=== PATIENT | female | born 1980 | race African-American/Black ===

== ENCOUNTER 2018-12-13 11:18 | Day surgery (SDC) | payer OTHER ==
--- NOTE | 2018-12-13 11:18 | HP ---
Admitting History and Physical - Admission Chief Complaint: Anemia, 35 weeks History of Present Illness: 38 y/o P2 female (h/o c section X 2 ) with SIUP at 35 weeks gestation here for Iron infusion for anemia. Last Hgb in office 7.8. Pt asymptomatic. complicated by gestational HTN, being monitored closely for development of preEclampsia. Plan for repeat c section this . History Source: Patient, Medical Record Limitations to Obtaining History: No Limitations - Past Medical History Cardiovascular: Yes: HTN (gestational). No: [place] Gastrointestinal: No: GI Bleed Hepatobiliary: No: Hepatitis B, Hepatitis C Renal/: No: UTI Reproductive: No: Ectopic , PID ...: Yes Heme/Onc: Yes: Anemia - Past Surgical History Past Surgical History: Yes: - Smoking History Smoking history: Never smoked Have you smoked in the past 12 months: No - Alcohol/Substance Use Hx Alcohol Use: No - Social History Usual Living Arrangement: Yes: With Spouse ADL: Independent History of Recent Travel: No Home Medications - Allergies Allergies/Adverse Reactions: Allergies Allergy/AdvReac Type Severity Reaction Status Date / Time Fish Containing Products Allergy Verified 06/16/12 08:17 - Home Medications Home Medications: Ambulatory Orders Acetaminophen [Tylenol .Regular Strength -] 650 mg PO Q4H PRN #1 tablet Ferrous Sulfate [Feosol] 325 mg PO BID #1 ud 06/19/12 Vitamins (Sjr) - 1 tab PO DAILY #1 06/19/12 Review of Systems - Review of Systems Constitutional: reports: No Symptoms Eyes: reports: No Symptoms HENT: reports: No Symptoms Neck: reports: No Symptoms Cardiovascular: reports: No Symptoms Respiratory: reports: No Symptoms Gastrointestinal: reports: No Symptoms Genitourinary: reports: No Symptoms Breasts: reports: No Symptoms Reported Musculoskeletal: reports: No Symptoms Integumentary: reports: No Symptoms Neurological: reports: No Symptoms Endocrine: reports: No Symptoms Hematology/Lymphatic: reports: No Symptoms Psychiatric: reports: No Symptoms Physical Examination Constitutional: Yes: Well Nourished, No Distress, Calm Neck: Yes: Trachea Midline Respiratory: Yes: Regular Gastrointestinal: Yes: Soft, Other (gravid) Neurological: Yes: Alert, Oriented Psychiatric: Yes: Alert, Oriented Problem List - Problems (1) Anemia Code(s): D64.9 - ANEMIA, UNSPECIFIED (2) 35 weeks gestation of Code(s): Z3A.35 - 35 WEEKS GESTATION OF (3) Gestational hypertension Code(s): O13.9 - GESTATIONAL HTN W/O SIGNIFICANT PROTEINURIA, UNSP TRIMESTER Assessment/Plan for IV Iron infusion per protocol
[2018-12-13] MEDS ORDERED: FERRIC CARBOXYMALTOSE 750 MG in SODIUM CHLORIDE 250 ML IVPB ONE (12:00)
[2018-12-13 14:26] VITALS: BP 118/61; PULSE 96; TEMP 98.2
== END 2018-12-13 13:37 | disposition home or self-care (01) ==
LOC: JINFUSION 11:18
PROVIDERS: ATTEND Obstetrics & Gynecology
PROC: 3E033GC Introduction of Other Therapeutic Substance into Peripheral Vein, Percutaneous Approach (ICD-10-PCS; principal; 2018-12-13)
DX: O99.013 Anemia complicating pregnancy, third trimester (principal); O13.3 Gestational [pregnancy-induced] hypertension without significant proteinuria, third trimester; Z3A.35 35 weeks gestation of pregnancy
CPT/HCPCS: 96365; J1439

== ENCOUNTER → 2018-12-21 | Day surgery (SDC) | payer OTHER ==
[~2018-12-21] MED LIST: FERRIC CARBOXYMALTOSE 750 MG in SODIUM CHLORIDE 250 ML IVPB ONE
[2018-12-21 12:28] VITALS: TEMP 97.9
--- NOTE | 2018-12-21 14:15 | HP ---
Admitting History and Physical - Admission History of Present Illness: 38 y/o P2 female (h/o c section X 2 ) with SIUP at 36 weeks gestation here for Iron infusion for anemia. Last Hgb in office 7.8. Pt asymptomatic. complicated by gestational HTN, being monitored closely for development of preEclampsia. Plan for repeat c section this . - Past Medical History Cardiovascular: Yes: HTN (gestational). No: [place] ...: Yes Heme/Onc: Yes: Anemia - Past Surgical History Past Surgical History: Yes: - Smoking History Smoking history: Never smoked Have you smoked in the past 12 months: No - Alcohol/Substance Use Hx Alcohol Use: No - Social History ADL: Independent History of Recent Travel: No Home Medications - Allergies Allergies/Adverse Reactions: Allergies Allergy/AdvReac Type Severity Reaction Status Date / Time Fish Containing Products Allergy Verified 12/13/18 14:22 shellfish derived Allergy Swelling Verified 12/14/18 16:59 - Home Medications Home Medications: Ambulatory Orders Ferrous Sulfate [Feosol] 325 mg PO BID #1 ud 06/19/12 Vitamins (Sjr) - 1 tab PO DAILY #1 06/19/12 Physical Examination Vital Signs: Vital Signs Temperature 97.9 F 12/21/18 13:24 Pulse Rate 96 H 12/21/18 13:24 Respiratory Rate 18 12/21/18 13:24 Blood Pressure 120/65 12/21/18 13:24 O2 Sat by Pulse Oximetry (%) Constitutional: Yes: Well Nourished, No Distress, Calm Gastrointestinal: Yes: Soft, Other (gravid abdomen) Psychiatric: Yes: Alert, Oriented Problem List - Problems (1) Anemia Code(s): D64.9 - ANEMIA, UNSPECIFIED (2) 36 weeks gestation of Code(s): Z3A.36 - 36 WEEKS GESTATION OF Assessment/Plan IV injectafer infusion as ordered per protocol
[2018-12-21 15:22] VITALS: BP 146/86; PULSE 92
== END | disposition home or self-care (01) ==
LOC: JINFUSION 11:59
PROVIDERS: ATTEND Obstetrics & Gynecology
PROC: 3E033GC Introduction of Other Therapeutic Substance into Peripheral Vein, Percutaneous Approach (ICD-10-PCS; principal; 2018-12-21)
DX: O99.013 Anemia complicating pregnancy, third trimester (principal); O13.3 Gestational [pregnancy-induced] hypertension without significant proteinuria, third trimester; Z3A.36 36 weeks gestation of pregnancy
CPT/HCPCS: 96365; J1439

== ENCOUNTER 2019-01-03 09:54 | Inpatient (IN) | payer OTHER ==
--- NOTE | 2019-01-03 10:39 | HP ---
Past Medical History - Admission Chief Complaint: here for c section History of Present Illness: 38 y/o with SIUP at 38.2 weeks gestation. h/o c section X 2 and diagnosed with gestational HTN this , mild, no meds. Had post pre Eclampsia with prior , has been following with MFM. HELLP labs X 2 normal. Desires sterilization. Feeling well today, no complaints. Denies HOWE/RUQ pain or changes in vision. History Source: Patient, Medical Record - Past Medical History Cardiovascular: Yes: HTN (h/o post pre eclampsia, gHTN this , no meds, HELLP labs neg) Pulmonary: No: Asthma, COPD Gastrointestinal: No: GERD Hepatobiliary: No: Hepatitis B, Hepatitis C ...: 5 ...Para: 2 ...Term: 2 Heme/Onc: Yes: Anemia Infectious Disease: No: HIV, MRSA, STD's Psych: No: Anxiety, Bipolar, Depression - Past Surgical History Past Surgical History: Yes: Cholecystectomy, Hx Myomectomy: No Hx Transabdominal Cerclage: No - Smoking History Smoking history: Never smoked Have you smoked in the past 12 months: No - Alcohol/Substance Use Hx Alcohol Use: No - Social History ADL: Independent History of Recent Travel: No Home Medications - Allergies Allergies/Adverse Reactions: Allergies Allergy/AdvReac Type Severity Reaction Status Date / Time Fish Containing Products Allergy Verified 01/03/19 10:23 shellfish derived Allergy Swelling Verified 01/03/19 10:23 - Home Medications Home Medications: Ambulatory Orders Ferrous Sulfate [Feosol] 325 mg PO BID #1 ud 06/19/12 Vitamins (Sjr) - 1 tab PO DAILY #1 06/19/12 Review of Systems - Review of Systems Constitutional: reports: No Symptoms Eyes: reports: No Symptoms HENT: reports: No Symptoms Neck: reports: No Symptoms Cardiovascular: reports: No Symptoms Respiratory: reports: No Symptoms Gastrointestinal: reports: No Symptoms Genitourinary: reports: No Symptoms Breasts: reports: No Symptoms Reported Musculoskeletal: reports: No Symptoms Integumentary: reports: No Symptoms Neurological: reports: No Symptoms Endocrine: reports: No Symptoms Hematology/Lymphatic: reports: No Symptoms Psychiatric: reports: No Symptoms Physical Exam - Maternity Constitutional: Yes: Well Nourished, No Distress, Calm Eyes: Yes: Conjunctiva Clear, EOM Intact HENT: Yes: Atraumatic, Normocephalic Neck: Yes: Supple, Trachea Midline Cardiovascular: Yes: Regular Rate and Rhythm Lungs: Clear to auscultation - Abdominal Exam/OB Number of Fetuses: Single Presentation: Vertex Contractions: No Category: I Accelerations: Uniform Decelerations: None - Vaginal Exam/OB Vaginal Bleediing: No Speculum Exam: No Amniotic Membrane Status: Intact Presentation: Vertex/Position - Physical Exam Psychiatric: Yes: Alert, Oriented Hemorrhage Risk Assessment - Risk Factors Medium Risk Factors: Yes: Prior , uterine surgery,or multiple laparotomies, Obesity (BMI >40) Risk Score: 2 Risk Level: High Risk Problem List - Problems (1) Gestational [-induced] hypertension without significant proteinuria , complicating childbirth Code(s): O13.4 - GESTATNL HTN WITHOUT SIGNIFICANT PROTEIN, COMP CHILDBIRTH (2) Obesity complicating Code(s): O99.210 - OBESITY COMPLICATING , UNSPECIFIED TRIMESTER Assessment/Plan 38 y/o with SIUP at 38.2 weeks, gestational HTN for repeat c section and BTL Anemia - Hgb 10.4 preop, will have 2 units PRBC crossmatched informed consent obtained anesthesia aware NPO Gallagher
[2019-01-03 10:43] VITALS: BMI 41.5
[2019-01-03] MEDS ORDERED: CITRIC ACID/SODIUM CITRATE 30 ML UNIT-DOSE CUP PO ONE (10:53)
[2019-01-03] MEDS ORDERED: ELECTROLYTE-148 SOLN 500 ML IV ONE (10:53)
[2019-01-03] MEDS ORDERED: METHYLERGONOVINE MALEATE 0.2 MG/1 ML AMP IM PRN (10:53)
[2019-01-03] MEDS ORDERED: ELECTROLYTE-148 SOLN 1,000 ML IV SCH (11:00)
[2019-01-03] MEDS ORDERED: morphine SULFATE/PF 0.5 MG/ML (2cc Syringe - QUVA) ONE (11:16)
[2019-01-03] MEDS ORDERED: PROPOFOL 20 ML ONE (11:18)
[2019-01-03] MEDS ORDERED: OXYTOCIN 20 UNITS in 0.9% NS 20 UNIT/1,000 ML INFUS.BAG IV ONE ×3 (11:27→16:54)
[2019-01-03] MEDS ORDERED: OXYTOCIN 10 UNITS/ML VIAL ONE (11:48)
[2019-01-03] MEDS ORDERED: ePHEDrine SULFATE 50 MG/1 ML AMPULE ONE (12:28)
--- NOTE | 2019-01-03 12:52 | OP ---
Operative Note - Note: Operative Date: 01/03/19 Pre-Operative Diagnosis: prior c section X 2, desires sterilization, gestational HTN Operation: repeat LTCS, bilateral salpingectomy Post-Operative Diagnosis: Same as Pre-op Surgeon: Reyna Delcid Aircraft Engineer: Anup Mckeon Anesthesia: Spinal Specimens Removed: placenta Estimated Blood Loss (mls): 700 Operative Report Dictated: Yes
[2019-01-03] MEDS: OXYTOCIN 20 UNITS in 0.9% NS 20 UNIT/1,000 ML INFUS.BAG IV SCH ×2 (13:00→16:55)
[2019-01-03] MEDS: FERROUS SO4 325 MG TABLET (FP) PO SCH (17:36)
[2019-01-03] MEDS: IBUPROFEN 800 MG/8 ML IJ IVPB PRN (18:19)
[2019-01-04] MEDS: IBUPROFEN 800 MG/8 ML IJ IVPB PRN (00:11)
[2019-01-04] MEDS: ACETAMINOPHEN 325 MG TABLET (FP) PO PRN ×3 (05:55→18:41)
[2019-01-04] MEDS: IBUPROFEN 600 MG TABLET (FP) PO PRN ×3 (05:56→18:40)
--- NOTE | 2019-01-04 07:43 | PN ---
Post Progress Note - Subjective Subjective: Pt seen/evaluated and doing well. Pain controlled, tolerating clear diet. Not yet ambulating or voiding. Good urine output. Type of Delivery: Repeat C/S Vital Signs: Vital Signs Temperature 98.8 F 01/04/19 05:00 Pulse Rate 88 01/04/19 05:00 Respiratory Rate 18 01/04/19 06:00 Blood Pressure 142/76 01/04/19 05:00 O2 Sat by Pulse Oximetry (%) 100 01/03/19 14:00 Uterus: Yes: Fundus Firm Incision: Yes: Dressing dry and intact Abdomen/GI: Yes: Abdomen soft Lochia: Yes: Rubra Lochia, amount: Moderate Extremities: Yes: Calves non-tender Perineum: Yes: Intact Problem List - Problems (1) Gestational [-induced] hypertension without significant proteinuria , complicating childbirth Code(s): O13.4 - GESTATNL HTN WITHOUT SIGNIFICANT PROTEIN, COMP CHILDBIRTH (2) Obesity complicating Code(s): O99.210 - OBESITY COMPLICATING , UNSPECIFIED TRIMESTER (3) delivery delivered Code(s): O82 - ENCOUNTER FOR DELIVERY WITHOUT INDICATION (4) Admission for sterilization Code(s): Z30.2 - ENCOUNTER FOR STERILIZATION Assessment/Plan POD#0 s/p primary c section, doing well cbc in a.m. advance diet as tolerated d/c [place] in a.m. routine care
--- NOTE | 2019-01-04 07:49 | OP ---
DATE OF OPERATION: 01/03/2019 PREOPERATIVE DIAGNOSES: Prior section x2, gestational hypertension, maternal obesity, desire for permanent sterilization. POSTOPERATIVE DIAGNOSES: Prior section x2, gestational hypertension, maternal obesity, desire for permanent sterilization. PROCEDURE: Repeat low transverse section, bilateral salpingectomy. SURGEON: Reyna Delcid DO ANESTHESIOLOGIST: __Rex Sethi SLASHER OPERATOR: LITA Chandler ANESTHESIA: Spinal. ESTIMATED BLOOD LOSS: 700 mL. COMPLICATIONS: None. SPECIMENS REMOVED: Placenta. COUNTS: Sponge, needle, and instrument count correct. DISPOSITION: Stable to PACU. BRIEF HISTORY AND DESCRIPTION OF PROCEDURE: Patient is a 38-year-old female who was seen in the office throughout her , was diagnosed with gestational hypertension. She also expressed desire for permanent sterilization and was scheduled for a repeat on January 03, 2019. Consents for the procedure were signed upon admission to the hospital. The patient was then taken back to the operating room. She was given spinal anesthesia, placed in the dorsal supine position. A Gallagher catheter was placed under sterile conditions. She was prepped and draped in the usual sterile fashion, and a hard timeout was performed. A Pfannenstiel skin incision was created in the skin with a scalpel and carried to the underlying layer of rectus fascia sharply. The fascia was incised on either side of the midline sharply and carried in a superolateral direction sharply. The fascia was tented upward and dissected off the underlying layer of rectus muscle sharply. The musculature was identified in the midline and laterally. Peritoneum was entered bluntly and dissected to allow for adequate room for delivery. A bladder blade was inserted. A low transverse incision was created on the uterus, and this incision was carried in a superolateral direction bluntly. The was then delivered from the right occiput transverse position. Bilateral shoulders and the remainder of delivered with ease. The 3-vessel cord was noted, clamped, and cut, and the infant was taken over to the warmer to be assessed by the neonatology staff. Placenta was delivered intact, it manually extracted. The uterus was exteriorized from the abdomen, inspected, and cleared of all amniotic membrane and debris with a dry lap sponge. The hysterotomy was reapproximated in double-layer closure using 1 Vicryl in a running locked fashion, second layer being 0 Biosyn in a running locked fashion. Excellent hemostasis was achieved. Attention was then turned to the fallopian tubes. The right fallopian tube was identified and traced to its fimbriated end, elevated, and dissected off its attachment to the mesosalpinx and uterus using the LigaSure device. The same was repeated on the left fallopian tube. Both fallopian tubes were sent to pathology for permanent evaluation. Excellent hemostasis was achieved at the surgical site. The posterior cul-de-sac was suctioned. The uterus was placed back into the abdomen. Bilateral gutters were inspected and cleared of all amniotic membrane, blood and debris. The peritoneum was reapproximated using 2-0 chromic in a running fashion. The musculature was reapproximated using 1 stitch of 0 Biosyn, and fascia was reapproximated using 1 Vicryl in a running fashion. The subcutaneous tissue was irrigated, and any bleeding was cauterized with Bovie device. The subcutaneous tissue was reapproximated using 1 Vicryl in a running fashion. The skin was reapproximated subcuticularly with 3-0 Vicryl, and Steri-Strips were applied. The patient tolerated the procedure well, is recovering in stable condition in the PACU after the time of this dictation. Sponge, needle and instrument counts were reported correct at the end of the case. REYNA DELCID DO /[id number] MTDD
[2019-01-04 08:40] LABS: BASO % 0.2 % (0-2.0); EOS % 0.2 % (0-4.5); HEMOGLOBIN 8.9 GM/dL (10.7-15.3); LYMPH % 7.6 % (8-40); MCH 24.9 pg (25.7-33.7); MCHC 31.6 g/dl (32.0-36.0); MEAN CELL VOLUME 78.9 fl (80-96); MEAN PLT VOLUME 8.6 fl (7.5-11.1); MONO % 7.2 % (3.8-10.2); NEUT % 84.8 % (42.8-82.8); PLATELET COUNT 154 K/MM3 (134-434); RBC 3.55 M/mm3 (3.60-5.2); RDW 35.2 % (11.6-15.6); WHITE BLOOD COUNT 7.6 K/mm3 (4.0-10.0)
[2019-01-04] MEDS: FERROUS SO4 325 MG TABLET (FP) PO SCH ×2 (08:43→17:26)
[2019-01-04] MEDS: SIMETHICONE 80 MG TAB.CHEW (FP) PO PRN (08:44)
[2019-01-04] MEDS: oxyCODONE HCL 5 MG TABLET PO PRN ×3 (08:44→18:39)
--- NOTE | 2019-01-04 08:52 | PN ---
Progress Note (short form) - Note Progress Note: Post op day#1.S/P C Section under spinal anesthesia with duramorph uneventful.Patient stable and c/o some pain for which she is on medication.No any anesthesia related problem.Patient DC from the anesthesia care.
[2019-01-04] MEDS: PRENATAL VITAMINS W/ FOLIC ACID TABLET (FP) PO SCH ×2 (09:52→13:19)
[2019-01-04] MEDS ORDERED: BISACODYL 10 MG SUPP.RECT RC PRN (10:53)
[2019-01-04 12:24] LABS: BASO % 0.3 % (0-2.0); EOS % 0.2 % (0-4.5); HEMATOCRIT 30.6 % (32.4-45.2); HEMOGLOBIN 9.3 GM/dL (10.7-15.3); MCH 24.3 pg (25.7-33.7); MCHC 30.4 g/dl (32.0-36.0); MEAN PLT VOLUME 9.3 fl (7.5-11.1); NEUT % 82.5 % (42.8-82.8); PLATELET COUNT 199 K/MM3 (134-434); RBC 3.82 M/mm3 (3.60-5.2); RDW 35.2 % (11.6-15.6); WHITE BLOOD COUNT 8.5 K/mm3 (4.0-10.0)
[2019-01-05] MEDS: SIMETHICONE 80 MG TAB.CHEW (FP) PO PRN ×3 (02:09→13:33)
[2019-01-05] MEDS: ACETAMINOPHEN 325 MG TABLET (FP) PO PRN (02:09)
[2019-01-05] MEDS: IBUPROFEN 600 MG TABLET (FP) PO PRN ×3 (02:10→13:34)
[2019-01-05] MEDS: oxyCODONE HCL 5 MG TABLET PO PRN ×4 (02:10→20:43)
[2019-01-05] MEDS: FERROUS SO4 325 MG TABLET (FP) PO SCH ×2 (08:08→17:10)
[2019-01-05] MEDS: PRENATAL VITAMINS W/ FOLIC ACID TABLET (FP) PO SCH (09:19)
[2019-01-05] MEDS ORDERED: DIPHTH,PERTUSS(ACELL),TET 0.5 ML DISP.SYRIN IM ONE (10:00)
[2019-01-05] MEDS ORDERED: FLU VACC QS2019-20(6MOS UP)/PF 60 MCG/0.5 ML SYRINGE IM ONE (10:00)
[2019-01-05] MEDS ORDERED: FLU VACCINE QUAD 60 MCG/0.5 ML (MDV 19-20) IM ONE (10:00)
[2019-01-06] MEDS: IBUPROFEN 600 MG TABLET (FP) PO PRN ×4 (02:59→20:18)
[2019-01-06] MEDS: oxyCODONE HCL 5 MG TABLET PO PRN ×2 (03:00→08:41)
[2019-01-06] MEDS: SIMETHICONE 80 MG TAB.CHEW (FP) PO PRN ×2 (03:00→14:37)
[2019-01-06 08:14] LABS: BASO % 0.1 % (0-2.0); EOS % 1.5 % (0-4.5); HEMATOCRIT 25.4 % (32.4-45.2); MCH 25.3 pg (25.7-33.7); MCHC 31.5 g/dl (32.0-36.0); MEAN CELL VOLUME 80.1 fl (80-96); MEAN PLT VOLUME 8.7 fl (7.5-11.1); MONO % 7.1 % (3.8-10.2); NEUT % 78.3 % (42.8-82.8); PLATELET COUNT 183 K/MM3 (134-434); RBC 3.17 M/mm3 (3.60-5.2); RDW 34.9 % (11.6-15.6); WHITE BLOOD COUNT 5.9 K/mm3 (4.0-10.0)
[2019-01-06] MEDS: FERROUS SO4 325 MG TABLET (FP) PO SCH ×2 (08:42→17:40)
[2019-01-06] MEDS: PRENATAL VITAMINS W/ FOLIC ACID TABLET (FP) PO SCH (09:28)
--- NOTE | 2019-01-06 11:46 | PN ---
Post Note - Post Date of Delivery: 01/03/19 Vital Signs: Vital Signs - 24 hr 01/05/19 01/06/19 01/06/19 22:00 10:00 11:15 Temperature 98.7 F 98.5 F Pulse Rate 95 H 92 H 90 Respiratory 17 20 20 Rate Blood Pressure 135/78 154/84 129/75 Labs: Laboratory Results - last 24 hr 01/06/19 07:23 WBC 5.9 RBC 3.17 L Hgb 8.0 L Hct 25.4 L D MCV 80.1 MCH 25.3 L MCHC 31.5 L RDW 34.9 H Plt Count 183 MPV 8.7 Absolute Neuts (auto) 4.6 Neutrophils % 78.3 Lymphocytes % 13.0 D Monocytes % 7.1 Eosinophils % 1.5 D Basophils % 0.1 Nucleated RBC % 0 - Subjective Subjective: No Complaints - Objective Afebrile: Yes Breast: Not engorged Abdomen: Soft, Other (incision intact no drainage) Uterus: Fundus firm Vagina: Scant lochia Extremities: Non-tender - Assessment/Plan (1) delivery delivered Assessment: Other (POD3) Plan: Routine Care, Other ([place] home)
[2019-01-06] MEDS: ACETAMINOPHEN 325 MG TABLET (FP) PO PRN ×2 (14:36→20:18)
[2019-01-07] MEDS: SIMETHICONE 80 MG TAB.CHEW (FP) PO PRN ×2 (01:53→08:55)
[2019-01-07] MEDS: IBUPROFEN 600 MG TABLET (FP) PO PRN ×2 (01:53→08:55)
[2019-01-07] MEDS: ACETAMINOPHEN 325 MG TABLET (FP) PO PRN ×2 (01:53→08:55)
--- NOTE | 2019-01-07 08:30 | DS ---
Physical Exam-CREDENTIALING COORDINATOR Vital Signs: Vital Signs Temperature 99.3 F 01/06/19 22:00 Pulse Rate 98 H 01/06/19 22:00 Respiratory Rate 01/06/19 22:00 Blood Pressure 138/84 01/06/19 22:00 O2 Sat by Pulse Oximetry (%) 100 01/03/19 14:00 Constitutional: Yes: Well Nourished, No Distress Gastrointestinal: Yes: WNL, Soft ....Post : Yes: Uterus firm, Uterus non-tender Breast(s): Yes: WNL Musculoskeletal: Yes: WNL Extremities: Yes: WNL Edema: No Wound/Incision: Yes: Clean/Dry, Well Approximated Neurological: Yes: WNL, Alert, Oriented Labs: CBC, BMP 01/06/19 07:23 Delivery - Delivery Type of Anesthesia: Spinal EBL (cc): 700 Delivery, Single - Stages of Labor Date of Delivery: 01/03/19 Time of Delivery: 12:10 Time Placenta Delivered: 12:11 - Condition of Managed Care Nurse/Restaurant Lead Present: Yes Name: Ruy Henson Gender: Male Weight: 7 lb 6 oz Total Hours ROM (Hrs/Mins): 2 minutes - 1 Minute Total Score: 8 5 Minutes Total Score: 9 - [place] Feeding Plan Initial Plan: Elected not to breastfeed exclusively throughout hospitalization Discharge Summary Problems reviewed: Yes Reason For Visit: REPEAT Current Active Problems Admission for sterilization (Acute) delivery delivered (Acute) Gestational [-induced] hypertension without significant proteinuria, complicating childbirth (Acute) Obesity complicating (Acute) Procedures: Principal: Repeat Section Hospital Course: Unremarkable Condition: Good - Instructions Disposition: HOME - Home Medications Comprehensive Discharge Medication List: Ambulatory Orders Ferrous Sulfate [Feosol] 325 mg PO BID #1 ud 06/19/12 Vitamins (Sjr) - 1 tab PO DAILY #1 06/19/12 Ibuprofen [Motrin -] 600 mg PO QID #28 tablet 01/07/19
[2019-01-07] MEDS: FERROUS SO4 325 MG TABLET (FP) PO SCH (08:55)
[2019-01-07] MEDS: PRENATAL VITAMINS W/ FOLIC ACID TABLET (FP) PO SCH (09:04)
[2019-01-07 10:53] VITALS: BP 127/76; PULSE 91; TEMP 98.1
--- NOTE | 2019-01-09 17:20 | PATH ---
Surgical Pathology Report Patient Name: VIKTORIA TATUM [facility]. Rec. #: [id number] /Age/Gender: 1980 (Age: 38) / F Account: [id number] Location: [facility] OBS/QUALITY CONTROL MICROBIOLOGIST Taken: 01/03/2019 Received: 01/04/2019 Reported: 01/09/2019 Physicians: Reyna Delcid M.D. Specimen(s) Received A: PLACENTA B: FALLOPIAN TUBE RIGHT C: FALLOPIAN TUBE LEFT Clinical History Iron transfusion 12/13/18, anemia , 38.2 weeks, advanced maternal age, morbidly obese Benign breast cyst-1999 Abnormal Pap-2012 C. Section 06/2007 and 06/2012. Spontaneous x2 Gallbladder removed 03/2017 Final Diagnosis A. PLACENTA, SECTION: 566 G THIRD TRIMESTER PLACENTA WITH TRIVASCULAR UMBILICAL CORD AND UNREMARKABLE PLACENTAL MEMBRANES. B. FALLOPIAN TUBE, RIGHT, SALPINGECTOMY: FALLOPIAN TUBE WITH VASCULAR CONGESTION AND PARATUBAL CYSTS (INCLUDING FIMBRIATED END AND FULL LUMINAL PORTION). C. FALLOPIAN TUBE, LEFT, SALPINGECTOMY: FALLOPIAN TUBE WITH VASCULAR CONGESTION, WALTHARD NEST AND PARATUBAL CYSTS (INCLUDING FIMBRIATED END AND FULL LUMINAL PORTION). Electronically Signed Missy Adamson M.D. Gross Description A. The specimen is received fresh labeled placenta and is a 566 gram, 19.0 x 16.0 x 2.0 cm. placenta with attached membranes and umbilical cord. The attached membranes are kam, translucent with focal opacities and insert marginally. The umbilical cord measures 40 cm. in length and averages 1 cm. in diameter. The cord inserts eccentrically, 4 cm. to the nearest margin. No true knots or strictures are identified. Cut surface of the umbilical cord reveals 3 vessels. The surface is escamilla blue with moderate fibrin deposition and appropriate caliber vessels. The maternal surface is red-brown with focal defects. Sectioning reveals red-brown, spongy parenchyma. No lesions are identified. Specialties Operator sections are submitted in three cassettes as follows: 1- membrane rolls and umbilical cord; 2-3- full thickness sections of placenta. B. Received in formalin labeled "fallopian tube right," is a 7 cm in length fimbriated fallopian tube. The outer surface is gómez purple and smooth. Sectioning reveals an unremarkable lumen. Specialties Operator sections are submitted in 2 cassettes as follows: 1-fimbria; 2-cross sections of fallopian tube. C. Received in formalin labeled "fallopian tube left," is a 7 cm in length fimbriated fallopian tube. The outer surface is gómez purple and smooth. Sectioning reveals an unremarkable lumen. Specialties Operator sections are submitted in 2 cassettes as follows: 1-fimbria; 2-cross sections of fallopian tube. [facility]
== END 2019-01-07 12:50 | disposition home or self-care (01) | DRG 785 ==
LOC: JLDR 09:54 → J3W 17:00
PROVIDERS: ADMIT Obstetrics & Gynecology; ATTEND Obstetrics & Gynecology
PROC: 10D00Z1 Extraction of Products of Conception, Low, Open Approach (ICD-10-PCS; principal; 2019-01-03)
PROC: 0UB70ZZ Excision of Bilateral Fallopian Tubes, Open Approach (ICD-10-PCS; 2019-01-03)
DX: O34.211 Maternal care for low transverse scar from previous cesarean delivery (principal); N85.8 Other specified noninflammatory disorders of uterus; O13.4 Gestational [pregnancy-induced] hypertension without significant proteinuria, complicating childbirth; O99.214 Obesity complicating childbirth; O99.02 Anemia complicating childbirth; Z3A.38 38 weeks gestation of pregnancy; Z30.2 Encounter for sterilization; Z37.0 Single live birth
CPT/HCPCS: 36415; 85025; 88302-TC; 88307-TC; 90686; 90715